=== PATIENT | female | born 1995 | race Hispanic/Latino ===

== ENCOUNTER → 2024-06-08 | Emergency (ER) | payer SELFPAY ==
[~2024-06-08] VITALS: Ht 170.2 cm; Wt 131.5 kg
[~2024-06-08] MED LIST: IOHEXOL-350 75 ML VIAL IV ONE; NITR100C4 PO; ONDA-243 PO; PANT20TA18 PO
--- NOTE | 2024-06-08 18:49 | ERN ---
ED Note History of Present Illness Stated Complaint: ABDOMINAL/BACK PAIN Chief Complaint: Abdominal Pain Time Seen by MD: 17:39 Time Seen by Midlevel: 17:39 Dictation: The patient is a 28-year-old female with no past medical history who presents to the emergency department with complaints of epigastric and left upper abdominal pain radiating to the back, nausea and nonbloody vomiting, and diarrhea. Patient denies any fevers. Denies any urinary discomfort. Allergies: Coded Allergies: Penicillins (Unverified Allergy, Intermediate, 06/08/24) Home Meds Active Scripts Pantoprazole Sodium (Pantoprazole Sodium) 20 Mg Tablet.dr, 1 TAB PO DAILY for 30 Days, #30 TAB 0 Refills Prov:SUE MACHADO [facility] 06/08/24 Ondansetron (Ondansetron Odt) 4 Mg Tab.rapdis, 4 MG PO Q6HPRN PRN for nausea, #16 TAB 0 Refills Prov:SUE MACHADO [facility] 06/08/24 Nitrofurantoin Monohyd/M-Cryst (Macrobid 100 mg Capsule) 100 Mg Capsule, 1 CAP PO BID for 5 Days, #10 CAP 0 Refills Prov:SUE MACHADO [facility] 06/08/24 Past Medical History Past Medical History: No Pertinent History Surgical History: None LMP: Jun 08, 2024 : 3 Para: 3 Aborts: 0 RN Note Reviewed/Agreed w/PFSH: Yes Review of System Dictation Constitutional: Negative for fever,chills, and weight loss Eyes: Negative for injury, pain,redness, and discharge ENT: Negative for injury,pain or swelling Cardiovascular: Negative for chest pain, palpitations, and edema Respiratory: Negative for shortness of breath, cough, and wheezing, Abdomen/GI: Negative for constipation positive for abdominal pain, nausea, vomiting, diarrhea, Back: Negative for injury and pain : Negative for injury, bleeding and discharge MS/Extremity: Negative for injury and deformity Skin: Negative for rash, and discoloration Neuro: Negative for headache, weakness, numbness, tingling, and seizure Psych: Negative for suicide ideation, homicidal ideation, and hallucinations Initial Vital Sign VS Vital Signs Date Time Temp Pulse Resp B/P (MAP) Pulse Ox O2 Delivery O2 Flow Rate FiO2 06/08/24 17:51 97.0 77 20 162/89 97 Room Air 0 06/08/24 20:25 21 Physical Exam Dictation Vital Signs reviewed General Appearance: Alert, oriented x 3, no acute distress, well developed, nourished. Head and Face: non-traumatic. Eyes: PERRL, pink conjunctivas, eyelid no trauma, anterior chamber with arcus senilis. Ears: Pinnas intact and no signs of trauma or erythema ear canals clear and no discharge TM no erythema Nose: No discharge, no bleeding. Oropharynx: Mouth normal, tongue pink. pharynx clear,no erythema, tonsils no exudates, no abscesses noted, mucous membrane moist Neck: Supple, non-tender, no thyromegaly, no masses, no JVD, no bruits Breast:Deferred Chest:No tenderness, no crepitus, no paradoxical movement, no retractions Lungs:Clear, well-ventilated, symmetric, no rales, no wheezing, no rhonchi, no stridor, good breath sounds bilaterally Heart: Regular rate, regular rhythm, no murmur, no gallops Vascular: no peripheral edema, Abdomen: Soft, positive bowel sounds, nondistended, no guarding, Upper left and right abd tenderness, eye no rebound, no masses no hepatomegaly, no splenomegaly, no Hines's sign, no hernias. Rectal: Deferred Genital: Deferred Neurological: Normal speech, motor function intact, sensory function intact Musculoskeletal: Neck nontender, full range of motion, back nontender, full range of motion, Extremities: nontender, full range of motion Skin: Color pink, dry, no turgor, no rash, no lacerations, no abrasions, no contusions. Lymphatic: Deferred Results (Laboratory/Radiology) Laboratory/Radiology Laboratory Tests Test 06/08/24 19:45 White Blood Count 13.3 K/uL (4.8-10.8) H Red Blood Count 4.42 MIL/uL (4.00-5.50) Hemoglobin 13.0 g/dL (12.0-16.0) Hematocrit 40.1 % (36-48) Mean Corpuscular Volume 90.7 fL (79-99) Mean Corpuscular Hemoglobin 29.4 pg (27.0-33.0) Mean Corpuscular Hemoglobin Concent 32.4 g/dL (32.0-36.0) Red Cell Distribution Width 12.6 % (11.0-15.5) Platelet Count 381 K/uL (130-400) Mean Platelet Volume 10.0 fL (7.5-10.5) Immature Granulocyte % (Auto) 0.4 % (0-1) Neutrophils (%) (Auto) 79.9 % (40.0-77.0) H Lymphocytes (%) (Auto) 14.1 % (21.0-51.0) L Monocytes (%) (Auto) 4.8 % (3.0-13.0) Eosinophils (%) (Auto) 0.4 % (0.0-8.0) Basophils (%) (Auto) 0.4 % (0.0-5.0) Neutrophils # (Auto) 10.6 K/uL (1.8-7.7) H Lymphocytes # (Auto) 1.9 K/uL (1.0-4.8) Monocytes # (Auto) 0.6 K/uL (0.1-1.0) Eosinophils # (Auto) 0.05 K/uL (0.00-0.70) Basophils # (Auto) 0.05 K/uL (0.00-0.20) Absolute Immature Granulocyte (auto 0.05 K/uL (0-1) Nucleated Red Blood Cells 0.0 % (0.0-0.19) Urine Color YELLOW (YELLOW) Urine Appearance CLOUDY (CLEAR) H Urine pH 8.5 (5.0-8.0) H Urine Specific [place] 1.029 (1.001-1.031) Urine Protein 70 mg/dL (NEGATIVE) H Urine Glucose (UA) NEGATIVE mg/dL (NEGATIVE) Urine Ketones 20 mg/dL (NEGATIVE) H Urine Occult Blood LARGE (NEGATIVE) H Urine Nitrate NEGATIVE (NEGATIVE) Urine Bilirubin NEGATIVE mg/dL (NEGATIVE) Urine Urobilinogen 0.2 mg/dL (0.2-1.0) Urine Leukocyte Esterase 75 [place]/uL (NEGATIVE) H Urine RBC TNTC /HPF (0-1) H Urine WBC 6-10 /HPF (0-1) H Urine Squamous Epithelial Cells MOD /HPF (0-2) Urine Triple Phosphate Crystals RARE /LPF (None Seen) Urine Bacteria FEW /HPF (None Seen) Urine HCG, Qualitative NEGATIVE (NEGATIVE) Sodium Level 138 mmol/L (136-145) Potassium Level 3.6 mmol/L (3.5-5.1) Chloride Level 101 mmol/L (101-111) Carbon Dioxide Level 30 mmol/L (21-32) Blood Urea Nitrogen 6 mg/dL (7-18) L Creatinine 0.7 mg/dL (0.5-1.0) Glomerular Filtration Rate Calc 119 mL/min (>90) Random Glucose 155 mg/dL (70-105) H Total Calcium 8.8 mg/dL (8.5-10.1) Total Bilirubin 0.3 mg/dL (0.2-1.0) Direct Bilirubin 0.1 mg/dL (0.0-0.3) Aspartate Amino Transf (AST/SGOT) 14 U/L (10-37) Alanine Aminotransferase (ALT/SGPT) 17 U/L (12-78) Alkaline Phosphatase 89 U/L (50-136) Total Protein 8.5 g/dL (6.0-8.3) H Albumin 3.7 g/dL (3.5-5.0) Lipase 27 U/L (16-77) REASON: upper right and left abd pain ORDERING PHYSICIAN: SUE MACHADO [facility] PROCEDURE: ABD PEL W - CT ABDOMEN/PELVIS W/CONTRAST CT ABDOMEN/PELVIS W/CONTRAST HISTORY: Abdominal pain COMPARISON: None TECHNIQUE: Multiple sequential axial images of the abdomen and pelvis were obtained from the dome of the diaphragm through symphysis pubis. Patient was given 75 cc of Omnipaque through intravenous route. Oral contrast was not given. FINDINGS: No pleural effusion is seen bilaterally. There is no evidence of parenchymal disease or pulmonary nodule of the visualized lower lungs. Degenerative changes of the thoracolumbar spine are present. The heart is not enlarged. Liver is enlarged with fatty changes measuring 23 cm. The liver, spleen, adrenal glands and pancreas are unremarkable. There is no evidence of hydronephrosis bilaterally. No evidence of renal stone is seen. Fecal material is seen in the colon. There are normal size retroperitoneal and mesenteric lymph nodes. No ascites is seen. Atherosclerotic changes are present. Pelvic sidewalls are symmetric bilaterally. Bladder is poorly distended. IMPRESSION: 1. No acute findings. CT was performed with one or more following dose reduction techniques: automated exposure control, adjustment of the mA and kv according to patient's size, or use of a iterative reconstruction technique. REASON: abd pain ORDERING PHYSICIAN: SUE MACHADO [employer] PROCEDURE: ABDRUQLTD - US ABDOMINAL RUQ\LTD US ABDOMINAL RUQ\E\LTD HISTORY: Abdominal pain COMPARISON: None TECHNIQUE: Right upper quadrant abdominal ultrasound study was performed. FINDINGS: Liver measured 22 cm. The visualized portion of the pancreas is within normal limits. Liver is echogenic consistent with liver parenchymal disease. Gallstones are seen in the gallbladder. Common duct measures 4 mm. No evidence of gallbladder wall thickening is seen. Right kidney measures 13 x 5.3 x 6.1 cm. No hydronephrosis is seen of the right kidney. IMPRESSION: 1. Gallstones in the distended gallbladder. No ductal dilatation is seen. 2. No hydronephrosis is seen. Labs Reviewed?: Yes ED Course ED Course Orders Procedure Category Date Status Time Cbc With Differential LAB 06/08/24 Complete 17:47 Urinalysis Profile LAB 06/08/24 Complete 17:47 0.9%Nacl 1000ml (Ns PHA 06/08/24 Complete 1000ml) 18:00 Morphine 4mg Syg PHA 06/08/24 Complete (Morphine 4mg Syg) 18:00 Ondansetron 4mg Inj PHA 06/08/24 Complete (Zofran 4mg Inj) 18:00 Pantoprazole 40mg Inj PHA 06/08/24 Complete (Protonix 40mg Inj 18:00 Lipase LAB 06/08/24 Complete 17:47 Hepatic Function Panel LAB 06/08/24 Complete 17:47 ,Urine Test LAB 06/08/24 Complete 17:47 Basic Metabolic Panel LAB 06/08/24 Complete 17:47 Us Abdominal Ruq\Ltd US 06/08/24 Resulted 18:31 Culture Urine VARUN 06/08/24 In Process 20:19 Ct Abdomen/Pelvis CT 06/08/24 Resulted W/Contrast 20:26 Ketorolac PHA 06/08/24 Complete Tromethamine 30mg/Ml 21:00 Iohexol (Omnipaque) PHA 06/08/24 Complete 20:55 Nitrofurantoin PHA 06/08/24 Logged Monohyd/M-Cryst 22:00 Current Medications Medications (Trade) Dose Ordered Sig/Raghu Route PRN Reason Start Time Stop Time Status Last Admin Dose Admin Iohexol (Omnipaque) 75 ml STK-MED ONCE IV 06/08/24 20:55 06/08/24 20:55 DC Ketorolac Tromethamine (toRADol) 30 mg ONCE ONCE IVP 06/08/24 21:00 06/08/24 21:01 DC 06/08/24 21:08 Morphine Sulfate (morPHINE 4MG SYG) 4 mg ONCE ONCE IVP 06/08/24 18:00 06/08/24 18:01 DC 06/08/24 19:55 Nitrofurantoin Macrocrystals (Macrobid) 100 mg ONCE ONCE PO 06/08/24 22:00 06/08/24 22:01 UNV Ondansetron HCl (zoFRAN 4MG INJ) 4 mg ONCE ONCE IVP 06/08/24 18:00 06/08/24 18:01 DC 06/08/24 19:55 Pantoprazole Sodium (PROTonix 40MG INJ) 40 mg ONCE ONCE IVP 06/08/24 18:00 06/08/24 18:01 DC 06/08/24 19:55 Sodium Chloride 1,000 ml @ 0 mls/hr ONCE ONCE IV 06/08/24 18:00 06/08/24 18:01 DC 06/08/24 19:56 Vital Signs Date Time Temp Pulse Resp B/P (MAP) Pulse Ox O2 Delivery O2 Flow Rate FiO2 06/08/24 20:25 97.3 72 18 152/74 98 Room Air* 0 21 06/08/24 17:51 97.0 77 20 162/89 97 Room Air 0 Medical Decision Making [facility] The patient is a 28-year-old female with no past medical history who presents to the emergency department with complaints of epigastric and left up per abdominal pain radiating to the back, nausea and nonbloody vomiting, and diarrhea. Patient denies any fevers. Denies any urinary discomfort. CBC showed mild leukocytosis, chemistry showed normal renal function, no electrolyte imbalance, negative lipase, normal liver enzymes, urinalysis positive for leukocyte esterase. Ultrasound revealed gallstones in the gallbladder. No ductal dilation. CT abdomen showed no acute pathology. Patient reports improving in pain. Instructed to follow up with PCP. Labs and imaging discussed with the patient who agrees to follow up. Patient in no acute distress, nontoxic appearance. Differential diagnosis: Gastroenteritis, cholecystitis, dehydration, gastritis Need for hospitalization: Patient does not meet criteria for hospitalization. There are no social concerns with this patient. DX & DISP Disposition: Discharge Departure Impression: Primary Impression: Biliary colic Additional Impressions: Epigastric pain, UTI (urinary tract infection), Nausea & vomiting Condition: Stable Scripts Pantoprazole Sodium (Pantoprazole Sodium) 20 Mg Tablet.dr 1 TAB PO DAILY for 30 Days, #30 TAB 0 Refills Prov: SUE MACHADO [facility] 06/08/24 Ondansetron (Ondansetron Odt) 4 Mg Tab.rapdis 4 MG PO Q6HPRN PRN for nausea, #16 TAB 0 Refills Prov: SUE MACHADO [facility] 06/08/24 Nitrofurantoin Monohyd/M-Cryst (Macrobid 100 mg Capsule) 100 Mg Capsule 1 CAP PO BID for 5 Days, #10 CAP 0 Refills Prov: SUE MACHADO [employer] 06/08/24 Additional Instructions: Please follow up with the primary doctor in 1-2 days. Please return to ER if symptoms worsen. FOLLOW-UP WITH PRIMARY CARE PROVIDER IN 1 TO 2 DAYS. TAKE MEDICATIONS DIRECTED HERE IN THE EMERGENCY ROOM. OKAY TO CONTINUE HOME MEDICATIONS UNLESS OTHERWISE DISCUSSED DURING YOUR VISIT IN THE EMERGENCY ROOM TODAY. RETURN TO YOUR NEAREST EMERGENCY ROOM IF SYMPTOMS WORSEN OR IF THERE IS NO IMPROVEMENT. CALL 911 IF YOU NEED IMMEDIATE ASSISTANCE. TAKE TYLENOL OR MOTRIN [id number] NEEDED AND IF NO CONTRAINDICATIONS ARE PRESENT. INCREASE ORAL HYDRATION. A WOUND CULTURE OR URINE CULTURE WAS ORDERED HERE IN THE EMERGENCY ROOM DEPARTMENT PLEASE FOLLOW-UP WITH PRIMARY CARE PROVIDER AND ADVISE THEM TO GET REPEAT PORTS FROM OUR FACILITY. IF YOU HAD ANY BRAXTON WRAP/SPLINTS THAT WERE APPLIED HERE, PLEASE DO NOT REMOVE THEM UNTIL YOU SEE YOUR PRIMARY CARE OR SPECIALTY. Referrals: SELF,REFERRAL (PCP) WESLEY GILLIAM MD, ANTHONY R MD Time of Disposition: 21:59 I have reviewed the case, and I agree with, Diagnosis and Plan SUE MACHADO SAAD Jun 08, 2024 18:49
[2024-06-08] MEDS: ondanSETRON 4MG INJ IVP ONE (19:55)
[2024-06-08] MEDS: morPHINE 4 MG SYG IVP ONE (19:55)
[2024-06-08] MEDS: PANTOPrazole 40 MG/VIAL IVP ONE (19:55)
[2024-06-08] MEDS: 0.9%NACL 1000ML 1,000 ML IV ONE (19:56)
[2024-06-08 20:06] LABS: BASOPHILS # (AUTO) 0.05 K/uL (0.00-0.20); BASOPHILS % (AUTO) 0.4 % (0.0-5.0); EOSINOPHILS # (AUTO) 0.05 K/uL (0.00-0.70); EOSINOPHILS % (AUTO) 0.4 % (0.0-8.0); HEMATOCRIT 40.1 % (36-48); IMMATURE GRANULOCYTE ABSOLUTE 0.05 K/uL (0-1); LYMPHOCYTES # (AUTO) 1.9 K/uL (1.0-4.8); LYMPHOCYTES % (AUTO) 14.1 % (21.0-51.0); MEAN CORPUSCULAR HEMOGLOBIN 29.4 pg (27.0-33.0); MEAN CORPUSCULAR HGB CONC 32.4 g/dL (32.0-36.0); MEAN CORPUSCULAR VOLUME 90.7 fL (79-99); MONOCYTES # (AUTO) 0.6 K/uL (0.1-1.0); MONOCYTES % (AUTO) 4.8 % (3.0-13.0); NEUTROPHILS # (AUTO) 10.6 K/uL (1.8-7.7); NEUTROPHILS % (AUTO) 79.9 % (40.0-77.0); PLATELET COUNT (AUTO) 381 K/uL (130-400); RED BLOOD CELL COUNT(AUTO) 4.42 MIL/uL (4.00-5.50); RED CELL DISTRIBUTION WIDTH 12.6 % (11.0-15.5); WHITE BLOOD COUNT (AUTO) 13.3 K/uL (4.8-10.8)
[2024-06-08 20:10] LABS: HCG,QUALITATIVE URINE NEGATIVE (NEGATIVE)
[2024-06-08 20:13] LABS: APPEARANCE,URINE CLOUDY (CLEAR); BILIRUBIN,URINE NEGATIVE (NEGATIVE); COLOR,URINE YELLOW (YELLOW); GLUCOSE, URINE (UA) NEGATIVE (NEGATIVE); KETONES,URINE 20 mg/dL (NEGATIVE); LEUKOCYTE ESTERASE ,URINE 75 Leu/uL (NEGATIVE); NITRATE,URINE NEGATIVE (NEGATIVE); OCCULT BLOOD,URINE LARGE (NEGATIVE); PH,URINE 8.5 (5.0-8.0); PROTEIN,URINE 70 mg/dL (NEGATIVE); UROBILINOGEN,URINE 0.2 mg/dL (0.2-1.0)
[2024-06-08 20:15] LABS: CREATININE 0.7 mg/dL (0.5-1.0); POTASSIUM 3.6 mmol/L (3.5-5.1)
[2024-06-08 20:19] LABS: ADD UA MICROSCOPIC YES
[2024-06-08 20:24] LABS: ALBUMIN 3.7 g/dL (3.5-5.0); BILIRUBIN,DIRECT 0.1 mg/dL (0.0-0.3); BILIRUBIN,TOTAL 0.3 mg/dL (0.2-1.0); TOTAL PROTEIN, SERUM 8.5 g/dL (6.0-8.3)
[2024-06-08 20:26] LABS: BACTERIA,URINE FEW /HPF (None Seen); MUCUS,URINE RARE LPF (None Seen); RBC,URINE TNTC /HPF (0-1); SQUAMOUS EPITHELIAL CELL,UR MOD /HPF (0-2); TRIPLE PHOSPHATE CRYSTAL,UR RARE /LPF (None Seen)
--- NOTE | 2024-06-08 20:49 | HMCIMG ---
US ABDOMINAL RUQ\E\LTD HISTORY: Abdominal pain COMPARISON: None TECHNIQUE: Right upper quadrant abdominal ultrasound study was performed. FINDINGS: Liver measured 22 cm. The visualized portion of the pancreas is within normal limits. Liver is echogenic consistent with liver parenchymal disease. Gallstones are seen in the gallbladder. Common duct measures 4 mm. No evidence of gallbladder wall thickening is seen. Right kidney measures 13 x 5.3 x 6.1 cm. No hydronephrosis is seen of the right kidney. IMPRESSION: 1. Gallstones in the distended gallbladder. No ductal dilatation is seen. 2. No hydronephrosis is seen.
[2024-06-08] MEDS: ketOROlac 30MG VIAL (30MG/ML) IVP ONE (21:08)
--- NOTE | 2024-06-08 21:41 | HMCIMG ---
CT ABDOMEN/PELVIS W/CONTRAST HISTORY: Abdominal pain COMPARISON: None TECHNIQUE: Multiple sequential axial images of the abdomen and pelvis were obtained from the dome of the diaphragm through symphysis pubis. Patient was given 75 cc of Omnipaque through intravenous route. Oral contrast was not given. FINDINGS: No pleural effusion is seen bilaterally. There is no evidence of parenchymal disease or pulmonary nodule of the visualized lower lungs. Degenerative changes of the thoracolumbar spine are present. The heart is not enlarged. Liver is enlarged with fatty changes measuring 23 cm. The liver, spleen, adrenal glands and pancreas are unremarkable. There is no evidence of hydronephrosis bilaterally. No evidence of renal stone is seen. Fecal material is seen in the colon. There are normal size retroperitoneal and mesenteric lymph nodes. No ascites is seen. Atherosclerotic changes are present. Pelvic sidewalls are symmetric bilaterally. Bladder is poorly distended. IMPRESSION: 1. No acute findings. CT was performed with one or more following dose reduction techniques: automated exposure control, adjustment of the mA and kv according to patient's size, or use of a iterative reconstruction technique.
[2024-06-08] MEDS: NITROFURANTOIN MONOHYD/M-CRYST 100 MG CAPSULE PO ONE (22:15)
[2024-06-08 22:16] VITALS: BP 136/65; PULSE 75; RESP 18; TEMP 97.3; O2SAT 97
== END ==
LOC: EDH 17:38
DX: K80.50 Calculus of bile duct without cholangitis or cholecystitis without obstruction (principal); R10.13 Epigastric pain; N39.0 Urinary tract infection, site not specified; R11.2 Nausea with vomiting, unspecified; Z79.899 Other long term (current) drug therapy; Z88.0 Allergy status to penicillin
CPT/HCPCS: 99285; 74177; 96374; 96375; 76705; 96361; 80076; 80048; 83690; 85025; 87086; 81001; 81025; 36415; J1885; J7030; J2405; J2270; J2470; Q9967

== ENCOUNTER 2024-09-05 10:14 | Emergency (ER) | payer SELFPAY ==
[~2024-09-05] VITALS: Ht 167.6 cm; Wt 133.4 kg
[~2024-09-05 10:14] MED LIST changes: -IOHEXOL-350 75 ML VIAL IV ONE
[2024-09-05 10:37] LABS: BASOPHILS # (AUTO) 0.04 K/uL (0.00-0.20); BASOPHILS % (AUTO) 0.5 % (0.0-5.0); EOSINOPHILS # (AUTO) 0.06 K/uL (0.00-0.70); EOSINOPHILS % (AUTO) 0.8 % (0.0-8.0); IMMATURE GRANULOCYTE ABSOLUTE 0.03 K/uL (0-1); LYMPHOCYTES % (AUTO) 13.5 % (21.0-51.0); MEAN CORPUSCULAR HEMOGLOBIN 29.3 pg (27.0-33.0); MEAN CORPUSCULAR HGB CONC 33.3 g/dL (32.0-36.0); MONOCYTES # (AUTO) 0.5 K/uL (0.1-1.0); MONOCYTES % (AUTO) 7.1 % (3.0-13.0); NEUTROPHILS % (AUTO) 77.7 % (40.0-77.0); PLATELET COUNT (AUTO) 307 K/uL (130-400); RED BLOOD CELL COUNT(AUTO) 3.75 MIL/uL (4.00-5.50); RED CELL DISTRIBUTION WIDTH 12.7 % (11.0-15.5); WHITE BLOOD COUNT (AUTO) 7.7 K/uL (4.8-10.8)
[2024-09-05] MEDS: 0.9%NACL 1000ML 1,000 ML IV ONE (10:45)
[2024-09-05] MEDS: ondanSETRON 4MG INJ IVP ONE (10:45)
--- NOTE | 2024-09-05 10:50 | NUR ---
placed 20g on right hand.
[2024-09-05] MEDS: ketOROlac 15MG/ML VIAL (15MG/ML) IV ONE (10:55)
--- NOTE | 2024-09-05 11:04 | NUR ---
patient does not take any home medications.
[2024-09-05 11:22] LABS: ALBUMIN 3.5 g/dL (3.5-5.0); BILIRUBIN,DIRECT 0.1 mg/dL (0.0-0.3); BILIRUBIN,TOTAL 0.4 mg/dL (0.2-1.0); CREATININE 0.6 mg/dL (0.5-1.0); POTASSIUM 3.6 mmol/L (3.5-5.1); TOTAL PROTEIN, SERUM 7.5 g/dL (6.0-8.3)
--- NOTE | 2024-09-05 11:50 | HMCIMG ---
Exam Type: CT ABD/PEL WO CON RENAL/APPY Clinical Information: LUQ pain Comparison: None Contrast: 100 cc's Isovue 370 IV, no complications or adverse reactions CT Dose Index (CTDI): 31.60 mGy Dose Length Product (DLP): 1740.80 total mGy-cm Findings: No evidence of nephro or ureterolithiasis is found. No hydronephrosis or ureteral dilatation is seen. The lung bases are clear. The stomach is unremarkable. It shows no wall thickening. No gross ulceration is seen. It is not overly distended. There are no surrounding inflammatory changes. No wall lesions are identified to suggest cancer. The spleen is unremarkable. It is not enlarged. The pancreas shows normal anatomy. It is not fatty replaced. It shows no lesions. The pancreatic duct is not dilated. There is evidence of cholelithiasis. No evidence of acute or chronic inflammation is seen. The adrenal glands are unremarkable. There is no enlargement. No lesions are noted. The liver is unremarkable. It shows no focal masses. The appendix is unremarkable. It shows no evidence of inflammation. No appendicolith is seen. The small bowel is unremarkable. There is no evidence of dilatation to suggest obstruction. No evidence of adynamic ileus is seen. There is no small bowel wall thickening to suggest enteritis. The colon is unremarkable. The urinary bladder is unremarkable. There is no wall thickening to suggest tumor or inflammation. There are no intraluminal calculi. There are no diverticula. There is no evidence of chronic bladder outlet obstruction. There is no evidence of urinary bladder distention to suggest urinary retention. The other pelvic structures are unremarkable. The bony and vascular structures are unremarkable for the patient's age. IMPRESSION: Cholelithiasis. This study was performed using dose reduction techniques to include automated exposure control and/or adjustment of the mA and/or kV according to patient size.
[2024-09-05] MEDS: morPHINE 4 MG SYG IVP ONE (12:05)
--- NOTE | 2024-09-05 12:08 | ERN ---
ED Note History of Present Illness Stated Complaint: ABDOMINAL PAIN, NAUSEA, VOMITING Chief Complaint: Nausea,Vomiting,Diarrhea Time Seen by MD: 10:20 Dictation: 29-year-old female presents to the ED for evaluation of LUQ abdominal pain onset 4:00 a.m.. Patient reports nausea, vomiting and back pain, but denies any other associated symptoms at this time. As per patient her left upper quadrant pain radiates to her back. No past surgical history. Allergies: Coded Allergies: Penicillins (Unverified Allergy, Intermediate, 06/08/24) Home Meds Active Scripts Ondansetron (Ondansetron Odt) 4 Mg Tab.rapdis, 1 TAB PO Q6HPRN PRN for nausea/vomiting for 4 Days, #16 TAB 0 Refills Prov:GIANNA CIFUENTES MD 09/05/24 Pantoprazole Sodium (Pantoprazole Sodium) 20 Mg Tablet.dr, 1 TAB PO DAILY for 30 Days, #30 TAB 0 Refills Prov:SUE MACHADO [facility] 06/08/24 Ondansetron (Ondansetron Odt) 4 Mg Tab.rapdis, 4 MG PO Q6HPRN PRN for nausea, #16 TAB 0 Refills Prov:MACHADO,SUE [facility] 06/08/24 Nitrofurantoin Monohyd/M-Cryst (Macrobid 100 mg Capsule) 100 Mg Capsule, 1 CAP PO BID for 5 Days, #10 CAP 0 Refills Prov:MACHADOHILLARY REEDLEN [facility] 06/08/24 Past Medical History Past Medical History: No Pertinent History Additional Past Medical Hx: DENIES MEDICAL HX Surgical History: None : 3 Para: 3 Aborts: 0 Review of System Dictation Constitutional: Negative for fever,chills, and weight loss Eyes: Negative for injury, pain,redness, and discharge ENT: Negative for injury,pain or swelling Cardiovascular: Negative for chest pain, palpitations, and edema Respiratory: Negative for shortness of breath, cough, and wheezing, Abdomen/GI: Positive for abdominal pain, nausea and vomiting negative for diarrhea, and constipation Back: Negative for injury and pain : Negative for injury, bleeding and discharge MS/Extremity: Negative for injury and deformity Skin: Negative for rash, and discoloration Neuro: Negative for headache, weakness, numbness, tingling, and seizure Psych: Negative for suicide ideation, homicidal ideation, and hallucinations Initial Vital Sign VS Vital Signs Date Time Temp Pulse Resp B/P (MAP) Pulse Ox O2 Delivery O2 Flow Rate FiO2 09/05/24 10:15 97.7 59 18 135/78 97 Room Air 0 09/05/24 10:56 21 Physical Exam Dictation General: awake, alert, patient looks uncomfortable Head/Face: Normocephalic, atraumatic Eyes: PERRL, EOMI, vision at baseline ENT: oral cavity clear, TMs clear, no signs of infection Neck: Trachea midline, supple, no nuchal rigidity Cardiovascular: RRR, normal S1/S2, No MRGs, no JVD Respiratory: CTAB, no respiratory distress, No rales or wheezes Abdomen: Left upper quadrant tenderness, non-distended, normal bowel sounds, no guarding or rebound. Skin: Warm, dry, normal turgor, no rash MS/Extremity: Pulses equal, no cyanosis, neurovascular intact, FROM Neuro: COAx4, GCS 15, strength 5/5, CN 2-12 intact, normal cerebellar exam, normal gait, Psych: Normal behavior, mood, and affect normal Results (Laboratory/Radiology) Laboratory/Radiology Laboratory Tests Test 09/05/24 10:33 09/05/24 10:49 09/05/24 15:00 White Blood Count 7.7 K/uL (4.8-10.8) Red Blood Count 3.75 MIL/uL (4.00-5.50) L Hemoglobin 11.0 g/dL (12.0-16.0) L Hematocrit 33.0 % (36-48) L Mean Corpuscular Volume 88.0 fL (79-99) Mean Corpuscular Hemoglobin 29.3 pg (27.0-33.0) Mean Corpuscular Hemoglobin Concent 33.3 g/dL (32.0-36.0) Red Cell Distribution Width 12.7 % (11.0-15.5) Platelet Count 307 K/uL (130-400) Mean Platelet Volume 10.0 fL (7.5-10.5) Immature Granulocyte % (Auto) 0.4 % (0-1) Neutrophils (%) (Auto) 77.7 % (40.0-77.0) H Lymphocytes (%) (Auto) 13.5 % (21.0-51.0) L Monocytes (%) (Auto) 7.1 % (3.0-13.0) Eosinophils (%) (Auto) 0.8 % (0.0-8.0) Basophils (%) (Auto) 0.5 % (0.0-5.0) Neutrophils # (Auto) 6.0 K/uL (1.8-7.7) Lymphocytes # (Auto) 1.0 K/uL (1.0-4.8) Monocytes # (Auto) 0.5 K/uL (0.1-1.0) Eosinophils # (Auto) 0.06 K/uL (0.00-0.70) Basophils # (Auto) 0.04 K/uL (0.00-0.20) Absolute Immature Granulocyte (auto 0.03 K/uL (0-1) Nucleated Red Blood Cells 0.0 % (0.0-0.19) Sodium Level 139 mmol/L (136-145) Potassium Level 3.6 mmol/L (3.5-5.1) Chloride Level 104 mmol/L (101-111) Carbon Dioxide Level 28 mmol/L (21-32) Blood Urea Nitrogen 8 mg/dL (7-18) Creatinine 0.6 mg/dL (0.5-1.0) Glomerular Filtration Rate Calc 123 mL/min (>90) Random Glucose 145 mg/dL (70-105) H Total Calcium 8.2 mg/dL (8.5-10.1) L Total Bilirubin 0.4 mg/dL (0.2-1.0) Direct Bilirubin 0.1 mg/dL (0.0-0.3) Aspartate Amino Transf (AST/SGOT) 14 U/L (10-37) Alanine Aminotransferase (ALT/SGPT) 26 U/L (12-78) Alkaline Phosphatase 80 U/L (50-136) Total Protein 7.5 g/dL (6.0-8.3) Albumin 3.5 g/dL (3.5-5.0) Lipase 23 U/L (16-77) Urine Color LIGHT-YELLOW (YELLOW) Urine Appearance HAZY (CLEAR) Urine pH 7.0 (5.0-8.0) Urine Specific [place] 1.020 (1.001-1.031) Urine Protein 10 mg/dL (NEGATIVE) H Urine Glucose (UA) NEGATIVE mg/dL (NEGATIVE) Urine Ketones 10 mg/dL (NEGATIVE) H Urine Occult Blood +- (TRACE) (NEGATIVE) H Urine Nitrate NEGATIVE (NEGATIVE) Urine Bilirubin NEGATIVE mg/dL (NEGATIVE) Urine Urobilinogen 0.2 mg/dL (0.2-1.0) Urine Leukocyte Esterase NEGATIVE [place]/uL Urine RBC 2-5 /HPF (0-1) H Urine WBC 0-1 /HPF (0-1) Urine Squamous Epithelial Cells FEW /HPF (0-2) Urine Bacteria FEW /HPF (None Seen) Urine HCG, Qualitative NEGATIVE (NEGATIVE) Labs Reviewed?: Yes Ultrasound Comment: REASON: ruq pain ORDERING PHYSICIAN: GIANNA CIFUENTES MD PROCEDURE: ABDRUQLTD - US ABDOMINAL RUQ\LTD Exam Type: US ABDOMINAL RUQ\E\LTD Clinical Information: ruq pain Comparison: None Findings: The liver shows fatty infiltration and is enlarged, measuring 21 cm and is otherwise unremarkable. Doppler evaluation shows patent portal and hepatic veins. The gallbladder shows evidence of cholelithiasis. There is no evidence of acute or chronic cholecystitis. No bile duct dilatation is noted. The gallbladder wall measures 2 mm. The common bile duct measures 4 mm. The right kidney measures 12.2 x 5.7 cm- it shows no hydronephrosis or calculi, masses or other abnormalities. The pancreas is suboptimally visualized. The aorta and inferior vena cava show no significant abnormalities. IMPRESSION: FATTY LIVER INFILTRATION AND HEPATOMEGALY. Cholelithiasis. OTHERWISE NORMAL RIGHT UPPER QUADRANT ABDOMINAL ULTRASOUND. DICTATED BY: ANNALISA YANEZ MD DATE: 09/05/[address] Scan Comment: REASON: LUQ pain ORDERING PHYSICIAN: GIANNA CIFUENTES MD PROCEDURE: ABD PELVWO - CT ABD/PEL WO CON RENAL/APPY Exam Type: CT ABD/PEL WO CON RENAL/APPY Clinical Information: LUQ pain Comparison: None Contrast: 100 cc's Isovue 370 IV, no complications or adverse reactions CT Dose Index (CTDI): 31.60 mGy Dose Length Product (DLP): 1740.80 total mGy-cm Findings: No evidence of nephro or ureterolithiasis is found. No hydronephrosis or ureteral dilatation is seen. The lung bases are clear. The stomach is unremarkable. It shows no wall thickening. No gross ulceration is seen. It is not overly distended. There are no surrounding inflammatory changes. No wall lesions are identified to suggest cancer. The spleen is unremarkable. It is not enlarged. The pancreas shows normal anatomy. It is not fatty replaced. It shows no lesions. The pancreatic duct is not dilated. There is evidence of cholelithiasis. No evidence of acute or chronic inflammation is seen. The adrenal glands are unremarkable. There is no enlargement. No lesions are noted. The liver is unremarkable. It shows no focal masses. The appendix is unremarkable. It shows no evidence of inflammation. No appendicolith is seen. The small bowel is unremarkable. There is no evidence of dilatation to suggest obstruction. No evidence of adynamic ileus is seen. There is no small bowel wall thickening to suggest enteritis. The colon is unremarkable. The urinary bladder is unremarkable. There is no wall thickening to suggest tumor or inflammation. There are no intraluminal calculi. There are no diverticula. There is no evidence of chronic bladder outlet obstruction. There is no evidence of urinary bladder distention to suggest urinary retention. The other pelvic structures are unremarkable. The bony and vascular structures are unremarkable for the patient's age. IMPRESSION: Cholelithiasis. This study was performed using dose reduction techniques to include automated exposure control and/or adjustment of the mA and/or kV according to patient size. DICTATED BY: ANNALISA YANEZ MD DATE: 09/05/24 1147 ED Course ED Course Orders Procedure Category Date Status Time Cbc With Differential LAB 09/05/24 Complete 10:21 Urinalysis Profile LAB 09/05/24 Complete 10:21 ,Urine Test LAB 09/05/24 Complete 10:21 Ondansetron 4mg Inj PHA 09/05/24 Complete (Zofran 4mg Inj) 10:30 0.9%Nacl 1000ml (Ns PHA 09/05/24 Complete 1000ml) 10:30 Ketorolac PHA 09/05/24 Complete Tromethamine 15mg/Ml 11:00 Basic Metabolic Panel LAB 09/05/24 Complete 10:42 Hepatic Function Panel LAB 09/05/24 Complete 10:42 Lipase LAB 09/05/24 Complete 10:42 Ct Abd/Pel Wo Con CT 09/05/24 Resulted Renal/Appy 11:00 Morphine 4mg Syg PHA 09/05/24 Complete (Morphine 4mg Syg) 11:30 Us Abdominal Ruq\Ltd US 09/05/24 Resulted 12:36 Current Medications Medications (Trade) Dose Ordered Sig/Raghu Route PRN Reason Start Time Stop Time Status Last Admin Dose Admin Ketorolac Tromethamine (toRADol) 15 mg ONCE ONCE IV 09/05/24 11:00 09/05/24 11:01 DC 09/05/24 10:55 Morphine Sulfate (morPHINE 4MG SYG) 4 mg ONCE ONCE IVP 09/05/24 11:30 09/05/24 11:31 DC 09/05/24 12:05 Ondansetron HCl (zoFRAN 4MG INJ) 4 mg ONCE ONCE IVP 09/05/24 10:30 09/05/24 10:31 DC 09/05/24 10:45 Sodium Chloride 1,000 ml @ 0 mls/hr ONCE ONCE IV 09/05/24 10:30 09/05/24 10:31 DC 09/05/24 10:45 Vital Signs Date Time Temp Pulse Resp B/P (MAP) Pulse Ox O2 Delivery O2 Flow Rate FiO2 09/05/24 12:51 98.2 59 17 122/63 98 Room Air* 0 21 09/05/24 10:56 98.1 56 18 119/57 97 Room Air* 0 21 09/05/24 10:15 97.7 59 18 135/78 97 Room Air 0 Medical Decision Making MDM MDM: Differential diagnosis: Abdominal pain, vomiting Rationale: Tests considered and ordered secondary to shared decision making include: Previous outside records reviewed: Old ER visits. Risk of complication and/or morbidity or mortality of patient management: None Medications-Per medication reconciliation Need for hospitalization: Patient does not meet criteria for hospitalization. Need for emergency major/minor surgery: No There are no social concerns with this patient. Prescription drug management Prescriptions will include symptomatic care Patient's prior external medical records from other ER visits were reviewed by me as indicated. Prior testing and results from previous visits were reviewed. Prior tests were taken into account with medical decision making and resource utilization, independent historian/historians were used to obtain complete medical history. I independently interpreted the test that were performed, results were reviewed by me and considered findings on radiology if ordered. Medical management and examination interpretation discussions were had by me with other qualified healthcare professionals as indicated for the patient's care. DX & DISP Disposition: Discharge Departure Impression: Primary Impression: Acute abdominal pain Condition: Stable Scripts Ondansetron (Ondansetron Odt) 4 Mg Tab.rapdis 1 TAB PO Q6HPRN PRN for nausea/vomiting for 4 Days, #16 TAB 0 Refills Prov: GIANNA CIFUENTES MD 09/05/24 Referrals: SELF,REFERRAL (PCP) GIANNA CIFUENTES MD September 05, 2024 12:07
[2024-09-05 12:51] VITALS: BP 122/63; PULSE 59; RESP 17; TEMP 98.3; O2SAT 98
--- NOTE | 2024-09-05 13:15 | HMCIMG ---
Exam Type: US ABDOMINAL RUQ\E\LTD Clinical Information: ruq pain Comparison: None Findings: The liver shows fatty infiltration and is enlarged, measuring 21 cm and is otherwise unremarkable. Doppler evaluation shows patent portal and hepatic veins. The gallbladder shows evidence of cholelithiasis. There is no evidence of acute or chronic cholecystitis. No bile duct dilatation is noted. The gallbladder wall measures 2 mm. The common bile duct measures 4 mm. The right kidney measures 12.2 x 5.7 cm- it shows no hydronephrosis or calculi, masses or other abnormalities. The pancreas is suboptimally visualized. The aorta and inferior vena cava show no significant abnormalities. IMPRESSION: FATTY LIVER INFILTRATION AND HEPATOMEGALY. Cholelithiasis. OTHERWISE NORMAL RIGHT UPPER QUADRANT ABDOMINAL ULTRASOUND.
[2024-09-05 15:10] LABS: BILIRUBIN,URINE NEGATIVE (NEGATIVE); COLOR,URINE LIGHT-YELLOW (YELLOW); GLUCOSE, URINE (UA) NEGATIVE (NEGATIVE); KETONES,URINE 10 mg/dL (NEGATIVE); LEUKOCYTE ESTERASE ,URINE NEGATIVE Leu/uL (NEGATIVE); NITRATE,URINE NEGATIVE (NEGATIVE); PROTEIN,URINE 10 mg/dL (NEGATIVE); UROBILINOGEN,URINE 0.2 mg/dL (0.2-1.0)
[2024-09-05 15:12] LABS: ADD UA MICROSCOPIC YES; APPEARANCE,URINE HAZY (CLEAR); HCG,QUALITATIVE URINE NEGATIVE (NEGATIVE)
[2024-09-05 15:17] LABS: BACTERIA,URINE FEW /HPF (None Seen); MUCUS,URINE RARE LPF (None Seen); SQUAMOUS EPITHELIAL CELL,UR FEW /HPF (0-2); WBC,URINE 0-1 /HPF (0-1)
[2024-09-05] MEDS ORDERED: ONDA-243 PO (15:41)
== END 2024-09-05 15:50 | disposition home or self-care (01) ==
LOC: EDH 10:14
DX: R10.12 Left upper quadrant pain (principal); R11.2 Nausea with vomiting, unspecified; Z79.899 Other long term (current) drug therapy; Z88.0 Allergy status to penicillin
CPT/HCPCS: 99285; 74176; 96374; 76705; 96375; 96361; 80076; 80048; 83690; 85025; 81001; 81025; 36415; J1885; J7030; J2405; J2270